=== PATIENT | female | born 1985 | race Caucasian/White ===

== ENCOUNTER 2018-01-23 14:16 | Emergency (ER) | payer OTHER ==
[~2018-01-23] VITALS: Ht 160 cm; Wt 74.8 kg
--- NOTE | 2018-01-23 14:21 | Emergency Room Report ---
History of Present Illness Present Illness HPI 32-year-old female presents to the emergency department status post syncopal episode while at doctor's office. Patient was having Botox injections performed for the first time and after the procedure when she attempted to stand up she felt lightheaded and needed to sit down after sitting down and she had witnessed syncopal episode without head trauma. Patient came to on her own. Patient reports feeling nausea just prior to syncopal episode. She denies past medical history such as cardiac, diabetes or recent illness which may have caused dehydration. Denies . Denies CP, Palpitations, LOC, AMS, dizziness, Changes in Vision, Sensation, paresthesias, or a sudden severe headache. Allergies: Coded Allergies: No Known Allergies (Unverified , 01/23/18) Patient History Past Medical History: see triage record Past Surgical History: none Pertinent Family History: none Now: No Reviewed Nursing Documentation: PMH: Agreed, PSxH: Agreed Review of Systems All Other Systems: negative except mentioned in HPI Physical Exam Sp02 EP Interpretation: reviewed, normal General Appearance: no apparent distress, alert, GCS 15, non-toxic Head: normocephalic, atraumatic ENT: hearing grossly normal, normal voice Neck: full range of motion Respiratory: chest non-tender, lungs clear, normal breath sounds, speaking full sentences Cardiovascular #1: regular rate, rhythm Gastrointestinal: non tender, soft Musculoskeletal: back normal, gait/station normal, normal range of motion Neurologic: alert, oriented x3, responsive, motor strength/tone normal, sensory intact, normal gait, speech normal, grossly normal Psychiatric: judgement/insight normal, mood/affect normal Skin: normal color, no rash, warm/dry, well hydrated Medical Decision Making PA Attestation Dr. Stevens is my supervising physician whom pt. management has been discussed with. Diagnostic Impression: Primary Impression: Syncope Qualified Codes: R55 - Syncope and collapse ER Course 32-year-old female presents to the emergency department status post syncopal episode while at doctor's office. Patient was having Botox injections performed for the first time and after the procedure when she attempted to stand up she felt lightheaded and needed to sit down after sitting down and she had witnessed syncopal episode without head trauma. Patient came to on her own. Patient reports feeling nausea just prior to syncopal episode. She denies past medical history such as cardiac, diabetes or recent illness which may have caused dehydration. Denies . Denies CP, Palpitations, LOC, AMS, dizziness, Changes in Vision, Sensation, paresthesias, or a sudden severe headache. Ddx considered but are not limited to dysrhythmia, methamphetamine, hypoglycemia , hypovolemia, , intracranial process, vasovagal. Vital signs: are WNL, pt. is afebrile H&PE are most consistent with syncopal episode- vasovagal s/p botox procedure. ORDERS: -Accu Check: 98 -12-lead EK Bpm NSR. -UA: WNL/unremarkable -Urine hCG: Negative ED INTERVENTIONS: -OJ PO -Observance while awaiting Urine results. DISCHARGE: At this time pt. is stable for d/c to home. Will provide printed patient care instructions, and any necessary prescriptions. Care plan and follow up instructions have been discussed with the patient prior to discharge. Labs Test 01/23/18 14:57 Urine Color Pale yellow Urine Appearance Clear Urine pH 8 (4.5-8.0) Urine Specific [place] 1.010 (1.005-1.035) Urine Protein Negative (NEGATIVE) Urine Glucose (UA) Negative (NEGATIVE) Urine Ketones Negative (NEGATIVE) Urine Occult Blood Negative (NEGATIVE) Urine Nitrite Negative (NEGATIVE) Urine Bilirubin Negative (NEGATIVE) Urine Urobilinogen Normal MG/DL (0.0-1.0) Urine Leukocyte Esterase Negative (NEGATIVE) Urine HCG, Qualitative Negative (NEGATIVE) EKG Diagnostic Results EP Interpretation: Dr. Stevens Rate: normal Rhythm: NSR ST Segments: no acute changes ASA given to the pt in ED: No PA Scribe Text This Interpretation was scribed by CHERIE Evans. Disposition: HOME, SELF-CARE Condition: Stable Patient Instructions: Syncope, [id number], Vasovagal Syncope, Adult Additional Instructions: Take medications as directed. Follow up with a Primary Care Provider in 3-5 days, even if your symptoms have resolved. --Please review list of primary care clinics, if you do not already have a primary care provider Return sooner to ED if new symptoms occur, or current symptoms become worse. - Please note that this Emergency Department Report was dictated using [employer] fitter technology software, occasionally this can lead to erroneous entry secondary to interpretation by the dictation equipment. Herlinda Evans Jan 23, 2018 14:21
[2018-01-23 15:26] LABS: BILIRUBIN, URINE NEGATIVE (NEGATIVE); COLOR,URINE PALE YELLOW; GLUCOSE, URINE (UA) NEGATIVE (NEGATIVE); KETONES,URINE NEGATIVE (NEGATIVE); LEUKOCYTE ESTERASE ,URINE NEGATIVE (NEGATIVE); NITRITE,URINE NEGATIVE (NEGATIVE); PH,URINE 8 (4.5-8.0); PROTEIN,URINE NEGATIVE (NEGATIVE); UROBILINOGEN,URINE NORMAL MG/DL (0.0-1.0)
[2018-01-23 15:29] LABS: APPEARANCE,URINE CLEAR
[2018-01-23 15:45] VITALS: BP 113/74
--- NOTE | 2018-01-27 18:49 | Cardiology Report ---
APPROVED REPORT EKG Measurement Heart [id number] Normal sinus rhythm Normal ECG
== END 2018-01-23 15:47 | disposition home or self-care (01) ==
LOC: EDBD 14:16 → EMR 15:18
DX: R55 Syncope and collapse (principal)
CPT/HCPCS: 81003; 81025; 93005; 99283